=== PATIENT | male | born 1965 | race Caucasian/White ===

== ENCOUNTER → 2020-03-01 11:00 | Outpatient (BNVA) | payer OTHER, SELFPAY | PROVIDERS: Referring Provider Family Medicine; Visit Provider Specialist | DX: M25.562 Pain in left knee (principal) | CPT/HCPCS: 73562 ==

== ENCOUNTER 2020-03-09 12:26 | Outpatient (CLI) | payer OTHER, SELFPAY ==
--- NOTE | 2020-03-09 13:00 | MR_ITS ---
WS: [id number] MRI LEFT KNEE HISTORY: M25.569 Pain in unspecified knee COMPARISON: 03/01/2020 Anterior cruciate ligament: Intact. Posterior cruciate ligament: Intact. Medial collateral ligament: Intact. Posterior lateral corner structures: Intact. Medial menisci: There is some very mild increased signal along the intra-articular surface of the pos terior horn. Increased peripheral signal in the posterior horn at the meniscal root. Cannot confirm a tear. This may be intrasubstance degeneration. Lateral meniscus: Intact. Normal signal, size and shape. Extensor mechanism: Distal quadriceps tendon and patellar tendons are intact. Fluid and soft tissue: Small to moderate suprapatellar joint effusion. Very tiny Silverio's cyst. There is a small amount of fluid in the intercondylar notch adjacent to the PCL. Osseous and articular structures: Patellofemoral compartment: Very mild lateral tilting of the patella. The cartilage is intact. No mar row edema. Medial compartment: There is a very small amount of marrow edema along the medial tibial plateau. No full-thickness cartilage defects. Small osteophytes from the medial knee. Lateral compartment: Small osteophytes from the joint line. No significant narrowing of the joint spa ce. MR/MR knee LT wo con* [id number] IMPRESSION: 1. Small to moderate suprapatellar effusion. 2. Small amount of fluid in the intercondylar notch adjacent to the PCL but no tear is appreciated. 3. No meniscal tear identified. 4. No fractures. Small amount of increased signal in the posterior horn medial meniscus and towa rds the meniscal root. Suspicious but not definitive for tear.
== END 2020-03-09 12:27 | disposition home or self-care (01) ==
LOC: RADSHAW 12:34
PROVIDERS: PCP Family Medicine; Visit Provider Specialist
DX: M25.562 Pain in left knee (principal); M25.462 Effusion, left knee
CPT/HCPCS: 73721

== ENCOUNTER 2024-10-05 07:52 | Outpatient (CLI) | payer OTHER, SELFPAY ==
--- NOTE | 2024-10-05 07:56 | US_ITS ---
WS: [id number] RIGHT UPPER QUADRANT ULTRASOUND HISTORY: RUQ PAIN/HX OF GALLSTONES AFTER HIGH FAT MEALS COMPARISON: None available. Liver: 14.8 cm in length. Normal size liver and echogenicity. No bile duct dilatation or mass. Portal Vein: Normal hepatopetal flow with monophasic waveform. Gallbladder: Numerous stones in the gallbladder. There is shadowing. No wall thickening or pericholecystic fluid. CBD: 0.3 cm Pancreas: Normal size and echogenicity. Right kidney: 10.2 cm in length. Normal size and echogenicity. No hydronephrosis or mass. Aorta and IVC: Atherosclerotic aorta. No ascites. US/US abdomen limited [id number] IMPRESSION: 1. Cholelithiasis without evidence for acute cholecystitis. Numerous stones wi thin the gallbladder. 2. No hepatobiliary dilatation.
== END 2024-10-05 07:53 | disposition home or self-care (01) ==
PROVIDERS: PCP Family Medicine; Visit Provider Nurse Practitioner
DX: R10.11 Right upper quadrant pain (principal); K80.20 Calculus of gallbladder without cholecystitis without obstruction; R93.3 Abnormal findings on diagnostic imaging of other parts of digestive tract; I70.0 Atherosclerosis of aorta
CPT/HCPCS: 76705